=== PATIENT | male | born 1980 | race Caucasian/White ===

== ENCOUNTER → 2021-09-02 | Outpatient (CLI) | payer OTHER ==
[~2021-09-02] MED LIST: CATHETER FLUSH 10 ML SYR IV PRN; HOLD METFORMIN - RECEIVED CONTRAST 20 ML VIAL IV SCH; IOHEXOL 350 MG/ML 100 ML (OMNIPAQUE 350) VIAL IV ONE; NS 100 ML (IVPB) BAG IV ONE
--- NOTE | 2021-09-02 09:31 | Diagnostic Imaging Report ---
INDICATION: Abdominal pain, history of lithotripsy. CTA of the abdomen is obtained with attention of the renal arteries. Axial slices are obtained with IV contrast bolus with multiplanar MIP reconstructions. Dose reduction protocol was used. The visualized portions of the lung bases show some right basilar scarring or atelectasis. There is no consolidation or pleural fluid. There is no free intraperitoneal air. The liver shows a marked low-density change compatible with fatty infiltration. No focal liver lesion is seen. Gallbladder appears unremarkable. The spleen, adrenals, and pancreas appear normal. The kidneys bilaterally show no hydronephrosis or focal lesion. There is no retroperitoneal mass or adenopathy. There is no retroperitoneal hematoma. Visualized bowel loops are unremarkable. CTA images demonstrate the abdominal aorta to be patent and without evidence of aneurysm or dissection. There is no evidence of aortic plaquing. The celiac trunk and SMA are widely patent and without stenosis or plaquing. Renal arteries are patent on both sides. There are accessory renal arteries on both sides supplying the lower pole, these accessory arteries are also patent and without stenosis. Inferior mesenteric artery is patent. The visualized portions of the common iliac arteries are patent and without stenosis. IMPRESSION: CTA renal artery shows no evidence of renal artery stenosis. There are accessory renal arteries to lower pole of both kidneys. Renal veins are patent. There is no focal renal lesion. Incidental finding is noted of severe fatty infiltration of the liver. Dictated by: Dictated on workstation # [id number]
== END ==
LOC: RAD 07:45
PROVIDERS: ATTEND Family Medicine
DX: K76.0 Fatty (change of) liver, not elsewhere classified (principal)
CPT/HCPCS: 74175